=== PATIENT | female | born 1950 | race Caucasian/White ===

== ENCOUNTER 2017-10-06 21:43 | Emergency (ER) | payer OTHER ==
[~2017-10-06] VITALS: Ht 152.4 cm; Wt 55.3 kg
--- NOTE | 2017-10-06 21:45 | NUR ---
TO BED 2 A 66 YO FEMALE PT BIBA#878 FROM HOME, PT C/O ABD PAIN WITH N/V X 2 DAYS. PATIENT IS AAOX4, NAD NOTED. VSS. NONDIAPHORETIC. GOWNED. COMFORT MEASURES RENDERED. ONGOING VS MONITORING. FAMILY AT BEDSIDE.
[2017-10-06] MEDS ORDERED: IV NS 0.9% 1,000 ML BAG IV ONE (22:00)
[2017-10-06] MEDS ORDERED: ONDANSETRON HCL/PF 4 MG/2 ML VIAL IVP ONE ×2 (22:00→23:00)
--- NOTE | 2017-10-06 22:00 | NUR ---
STARTED A SALINE LOCK ON THE RFA G20, BLOOD DRAWN AND SENT TO LAB.
[2017-10-06] MEDS ORDERED: ONDANSETRON HCL/PF 4 MG/2 ML VIAL ONE ×3 (22:03→23:38)
[2017-10-06 22:05] LABS: BASOPHILS % (AUTO) 0.3 % (0.0-2.0); EOSINOPHILS % (AUTO) 0.3 % (0.0-6.0); HEMATOCRIT 44 % (33-45); HEMOGLOBIN 14.5 g/dL (11.5-14.8); LYMPHOCYTES # (AUTO) 1.5 /CMM (0.8-4.8); LYMPHOCYTES % (AUTO) 15.7 % (20.0-44.0); MEAN CORPUSCULAR HEMOGLOBIN 27 PG (26.0-33.0); MEAN CORPUSCULAR HGB CONC 33 g/dl (31.0-36.0); MEAN CORPUSCULAR VOLUME 83 fL (82-100); MONOCYTES # (AUTO) 0.5 /CMM (0.1-1.30); MONOCYTES % (AUTO) 5.2 % (2.0-12.0); NEUTROPHILS # (AUTO) 7.5 /CMM (1.8-8.9); NEUTROPHILS % (AUTO) 78.5 % (43.0-81.0); PLATELET COUNT (AUTO) 233 /CMM (150-450); RDW COEFFICIENT OF VARIATION 13.3 (11.5-15.0); RED BLOOD CELL COUNT(AUTO) 5.29 MIL/uL (4.0-5.2); WHITE BLOOD COUNT (AUTO) 9.6 K/uL (4.3-11.0)
--- NOTE | 2017-10-06 22:08 | NUR ---
MEDICATED PATIENT ORDERED.
[2017-10-06 22:26] LABS: ALBUMIN 4.1 g/dL (3.4-5.0); BILIRUBIN,DIRECT 0.1 mg/dL (0.0-0.2); BILIRUBIN,TOTAL 0.7 mg/dL (0.2-1.0); CALCIUM, SERUM 10.8 mg/dL (8.5-10.1); CREATININE 0.9 mg/dL (0.6-1.3); POTASSIUM 3.5 mmol/L (3.5-5.1); TOTAL PROTEIN, SERUM 7.8 g/dL (6.4-8.2)
[2017-10-06] MEDS ORDERED: PANTOPRAZOLE 40 MG VIAL ONE (22:52)
--- NOTE | 2017-10-06 22:55 | NUR ---
XR AT BEDSIDE.
[2017-10-06] MEDS ORDERED: PANTOPRAZOLE 40 MG VIAL IV ONE (23:00)
[2017-10-06 23:05] LABS: APPEARANCE,URINE CLEAR (CLEAR); BILIRUBIN,URINE 1+ (NEGATIVE); BLOOD, URINE 3+ Ery/uL (NEGATIVE); COLOR,URINE YELLOW (YELLOW); KETONES,URINE 3+ (NEGATIVE); LEUKOCYTE ESTERASE ,URINE NEGATIVE (NEGATIVE); NITRITE, URINE NEGATIVE (NEGATIVE); PROTEIN,URINE TRACE mg/dl (NEGATIVE); UGLUCOSE NEGATIVE (NEGATIVE); UROBILINOGEN,URINE 0.2 EU/dL (0.2)
[2017-10-06 23:16] LABS: BACTERIA,URINE None seen /HPF (None Seen); MUCUS,URINE Rare /LPF (None Seen); SQUAMOUS EPITHELIAL CELL,UR Moderate /HPF (None Seen)
[2017-10-06 23:19] LABS: INR 0.94 (0.87-1.13); PROTHROMBIN TIME 9.8 SECS (9.5-12.7)
[2017-10-06] MEDS ORDERED: DICYCLOMINE HCL INJ 20 MG/2 ML AMPUL IM ONE ×2 (23:28→23:30)
[2017-10-06] MEDS ORDERED: MAG HYDROX/AL HYDROX/SIMETH 30 ML UDC ONE (23:29)
[2017-10-06] MEDS ORDERED: MAG HYDROX/AL HYDROX/SIMETH 30 ML UDC PO ONE (23:30)
[2017-10-06] MEDS ORDERED: IOHEXOL-350 100 ML VIAL IV ONE (23:39)
[2017-10-06] MEDS ORDERED: IV NS 0.9% 250 ML IV ONE (23:39)
--- NOTE | 2017-10-06 23:45 | NUR ---
PATIENT TO CT.
--- NOTE | 2017-10-06 23:57 | NUR ---
BACK FROM RADIOLOGY.
[2017-10-07] MEDS ORDERED: ONDANSETRON HCL/PF - ER 4 MG/2 ML VIAL IV ONE
--- NOTE | 2017-10-07 01:02 | NUR ---
IV removed. Catheter intact and site benign. Pressure and 4x4 applied to site. No bleeding noted. Patient discharged to home in stable condition. Written and verbal after care instructions given. Patient verbalizes understanding of instruction. Patient is ambulatory with steady gait, accompanied by family. vss. nad noted. no further complaints.
[2017-10-07 01:03] VITALS: BP 127/79
== END 2017-10-07 01:04 | disposition home or self-care (01) ==
LOC: ER 21:44
DX: R10.9 Unspecified abdominal pain (principal); R11.2 Nausea with vomiting, unspecified; R12 Heartburn
CPT/HCPCS: 36415; 71010; 74175; 80048; 80076; 81001; 83690; 84484; 85025; 85730; 93005; 96361; 96372; 96374; 96375; 96376; 99285; A4606; C9113; J0500; J2405 ×4; J7030; J7050; Q9967; Z7610; 81000-TC